=== PATIENT | male | born 1960 | race Caucasian/White ===

== ENCOUNTER 2016-09-20 09:36 | Outpatient (CLI) | payer OTHER ==
[2016-09-20 18:36] LABS: BASOPHILS % (AUTO) 0.5 %; EOSINOPHILS # (AUTO) 0.2 10^3/uL (0.0-0.7); EOSINOPHILS % (AUTO) 2.5 %; HCT - HEMATOCRIT 50.1 % (42.0-52.0); HGB - HEMOGLOBIN 16.2 g/dL (14.0-18.0); LYMPHOCYTES # (AUTO) 2.6 10^3/uL (1.5-3.5); MEAN CORPUSCULAR HEMOGLOBIN 30.3 pg (27.0-31.0); MEAN CORPUSCULAR HGB CONC 32.3 g/dL (32.0-36.0); MEAN CORPUSCULAR VOLUME 93.7 fL (80.0-94.0); MEAN PLATELET VOLUME 8.1 fL (7.4-11.4); MONOCYTES # (AUTO) 0.6 10^3/uL (0.0-1.0); MONOCYTES % (AUTO) 6.9 %; NEUTROPHILS # (AUTO) 4.8 10^3/uL (1.5-6.6); NEUTROPHILS % (AUTO) 58.1 %; RED BLOOD COUNT 5.35 10^6/uL (4.70-6.10); RED CELL DISTRIBUTION WIDTH 15.3 % (12.0-15.0); UNCORRECTED WHITE BLOOD COUNT 8.2 x10^3/uL; WHITE BLOOD COUNT 8.2 x10^3/uL (4.8-10.8)
[2016-09-20 18:57] LABS: ALBUMIN/GLOBULIN RATIO 1.5 (1.0-2.2); BILIRUBIN,TOTAL 0.8 mg/dL (0.2-1.0); BUN - BLOOD UREA NITROGEN 11 mg/dL (6-20); CALCIUM 9.6 mg/dL (8.5-10.3); CARBON DIOXIDE - CO2 24 mmol/L (21-32); CHLORIDE 106 mmol/L (101-111); CHOL/HDL RATIO 9.2 (<5.0); CHOLESTEROL 357 mg/dL; GFR - MDRD 77 (>89); GLUCOSE 98 mg/dL (70-100); HDL CHOLESTEROL 39 mg/dL; LDL/HDL RATIO 7.5 (<3.6); POTASSIUM 4.1 mmol/L (3.5-5.0); SODIUM 139 mmol/L (135-145); TOTAL PROTEIN 7.6 g/dL (6.7-8.2); TRIGLYCERIDES 126 mg/dL; VLDL CHOLESTEROL 25 mg/dL
[2016-09-20 19:05] LABS: FREE T3 3.23 pg/mL (2.5-3.9)
[2016-09-20 19:08] LABS: PLATELET ESTIMATE, MANUAL NORMAL (130-450,000) (NORMAL); PLATELET MORPHOLOGY NORMAL APPEARANCE (NORMAL)
[2016-09-20 19:09] LABS: WBC MORPHOLOGY (MULTIPLE) 1+ REACTIVE LYMPHS (NORMAL)
[2016-09-20 19:11] LABS: FERRITIN 200.7 ng/mL (23.9-336.2); TOTAL T3 1.18 ng/mL (0.87-1.78)
[2016-09-20 19:23] LABS: THYROID STIMULATING HORMONE 0.79 uIU/mL (0.34-5.60)
[2016-09-24 13:10] LABS: T3 REVERSE 15 ng/dL (8-25)
[2016-09-24 16:12] LABS: TEST RESULT REPORT (())
== END 2016-09-20 09:37 | disposition home or self-care (01) ==
LOC: LAB.F 09:36
PROVIDERS: ATTEND Family Medicine
DX: Z00.00 Encounter for general adult medical examination without abnormal findings (principal); E55.9 Vitamin D deficiency, unspecified; R25.2 Cramp and spasm; M79.1 Myalgia
CPT/HCPCS: 36415; 80053; 80061; 81599; 82040; 82626; 82728; 84270; 84402; 84403; 84439; 84443; 84480; 84481; 84482; 85025; 85651; 86140

== ENCOUNTER 2017-05-16 13:29 | Outpatient (CLI) | payer OTHER ==
--- NOTE | 2017-05-16 17:59 | XRAY Report ---
DATE OF SERVICE: 05/16/2017 FOUR VIEW RIGHT WRIST: 05/16/2017 CLINICAL INDICATION: Pain, deformity. FINDINGS: AP, lateral, oblique, scaphoid views of the right wrist demonstrate no evidence of fracture or dislocation. The joint spaces are preserved. No radiopaque foreign body is appreciated in the soft tissues. IMPRESSION: NORMAL RIGHT WRIST. TD: 05/16/2017 17:57
--- NOTE | 2017-05-16 18:00 | XRAY Report ---
DATE OF SERVICE: 05/16/2017 THREE VIEW RIGHT HAND: 05/16/2017 CLINICAL INDICATION: Trauma, pain, deformity. FINDINGS: AP, lateral, oblique views of the right hand demonstrate no evidence of acute fracture or dislocation. There is mild subluxation of the first metacarpophalangeal joint, suggestive of ligamentous injury. If clinically warranted, consider MRI. No radiopaque foreign body is seen in the soft tissues. IMPRESSION: NO EVIDENCE OF ACUTE FRACTURE. SUBLUXATION OF THE FIRST METACARPOPHALANGEAL JOINT, SUGGESTIVE OF LIGAMENTOUS INJURY. TD: 05/16/2017 17:59
== END 2017-05-16 13:30 | disposition home or self-care (01) ==
LOC: DI 13:29
PROVIDERS: ATTEND Family Medicine
DX: S63.210A Subluxation of metacarpophalangeal joint of right index finger, initial encounter (principal)

== ENCOUNTER 2019-12-24 08:57 | Outpatient (CLI) | payer OTHER ==
--- NOTE | 2019-12-24 14:26 | XRAY Report ---
PROCEDURE: Knee 3 View RT INDICATIONS: PAIN IN RIGHT KNEE TECHNIQUE: 3 views of the right knee(s) were acquired. COMPARISON: None. FINDINGS: Bones: No fractures or dislocations. No suspicious bony lesions. Mild medial and patellofemoral co mpartment narrowing. No erosions. Soft tissues: Moderate joint effusion. No suspicious soft tissue calcifications. 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 Reviewed by: Betzaida Joy MD on 12/24/2019 2:25 PM PDT Approved by: Betzaida Joy MD on 12/24/2019 2:25 PM PDT Station ID: [id number]
== END 2019-12-24 08:58 | disposition home or self-care (01) ==
LOC: DI.S 08:57
PROVIDERS: ATTEND Nurse Practitioner Family
DX: M17.11 Unilateral primary osteoarthritis, right knee (principal)